=== PATIENT | female | born 1990 | race Caucasian/White ===

== ENCOUNTER → 2019-06-28 | Outpatient (CLI) | payer BC ==
[2019-06-28 17:39] LABS: Basophils # (A) 0.1 k/uL (0-0.2); Basophils % (A) 1 %; Eosinophils # (A) 0.2 k/uL (0-0.7); Eosinophils % (A) 2 %; HCT 43.2 % (34.0-46.0); HGB 13.9 gm/dL (11.4-16.0); Lymphocytes # (A) 3.7 k/uL (1.0-4.8); Lymphocytes % (A) 36 %; MCH 29.6 pg (25.0-35.0); MCHC 32.3 g/dL (31.0-37.0); MCV 91.7 fL (80.0-100.0); Mean Platelet Volume 6.5; Monocytes # (A) 0.4 k/uL (0-1.0); Monocytes % (A) 4 %; Neutrophils # (A) 5.7 k/uL (1.3-7.7); Neutrophils % (A) 55 %; Platelet Count 353 k/uL (150-450); RBC 4.71 m/uL (3.80-5.40); RDW 11.9 % (11.5-15.5); WBC 10.3 k/uL (3.8-10.6)
== END | disposition home or self-care (01) ==
LOC: LABPAT 16:45
PROVIDERS: ATTEND Obstetrics & Gynecology
DX: Z01.812 Encounter for preprocedural laboratory examination (principal)
CPT/HCPCS: 36415; 85025

== ENCOUNTER 2019-07-08 07:12 | Day surgery (SDC) | payer BC ==
[2019-07-05 16:01] VITALS: BMI 38.9
[~2019-07-08 07:12] MED LIST: DEXAMETHASONE SOD PHOSPHATE 10 MG/ML 1 ML VIAL IV ONE; HYDROmorphone 0.5 MG/0.5 ML SYRINGE IVP PRN; LIDOCAINE 1% 20 ML VIAL (10MG/ML) FOR IV START INTRADERMA PRN; MIDAZOLAM 2 MG/2 ML VIAL IV PRN; ONDANSETRON 4 MG/2 ML VIAL IVP ONE; Pre Op ABX Message 1 EACH MISC MISCELLANE ONE; SCOPOLAMINE 1.5MG/72HR PATCH TRANSDERM ONE
--- NOTE | 2019-07-08 07:27 | P.HPOB ---
History of Present Illness H&P Date: 07/08/19 Chief Complaint: Family planning 29 year old G0 presents for laparoscopic tubal ligation. Review of Systems All systems: negative Constitutional: Denies chills, Denies fever Eyes: denies blurred vision, denies pain Ears, nose, mouth and throat: Denies headache, Denies sore throat Cardiovascular: Denies chest pain, Denies shortness of breath Respiratory: Denies cough Gastrointestinal: Denies abdominal pain, Denies diarrhea, Denies nausea, Denies vomiting Genitourinary: Denies dysuria, Denies hematuria Musculoskeletal: Denies myalgias Integumentary: Denies pruritus, Denies rash Neurological: Denies numbness, Denies weakness Psychiatric: Denies anxiety, Denies depression Endocrine: Denies fatigue, Denies weight change Past Medical History Past Medical History: No Reported History History of Any Multi-Drug Resistant Organisms: None Reported Past Surgical History: Tonsillectomy Additional Past Surgical History / Comment(s): WHARTONS DUCT STONE REMOVAL Past Anesthesia/Blood Transfusion Reactions: No Reported Reaction Past Psychological History: ADD/ADHD, Anxiety Smoking Status: Current every day smoker Past Alcohol Use History: None Reported Past Drug Use History: Marijuana - Past Family History Mother Family Medical History: Hypertension Father Family Medical History: Diabetes Mellitus, Hyperlipidemia, Liver Disease Medications and Allergies Home Medications Medication Instructions Recorded Confirmed Type Dextroamphetamine/Amphetamine 60 mg PO DAILY 07/05/19 07/05/19 History [Adderall] Etonogestrel/Ethinyl Estradiol 1 each VG DIRECTED 07/05/19 07/05/19 History [Nuvaring Vaginal Ring] Allergies Allergy/AdvReac Type Severity Reaction Status Date / Time No Known Allergies Allergy Verified 07/05/19 15:54 Exam Osteopathic Statement: *. No significant issues noted on an osteopathic structural exam other than those noted in the History and Physical/Consult. HEart: RRR Lungs: CTAB Abdomen: soft, nontender Extremeties: heron's Assessment and Plan (1) Family planning Current Visit: Yes Status: Acute Code(s): Z30.09 - ENCOUNTER FOR OTH GENERAL CNSL AND ADVICE ON CONTRACEPTION SNOMED Code(s): 788868992 Plan: 1. laparoscopic tubal ligation
[2019-07-08] MEDS ORDERED: LACTATED RINGERS 1,000 ML IV ONE (07:38)
[2019-07-08] MEDS ORDERED: MIDAZOLAM 2 MG/2 ML VIAL ONE (07:56)
[2019-07-08] MEDS ORDERED: KETOROLAC 30 MG/ML 1 ML VIAL ONE (07:56)
[2019-07-08] MEDS ORDERED: LIDOCAINE 1% INJ 10MG/ML (20 ML MDV) ONE (07:56)
[2019-07-08] MEDS ORDERED: HYDROmorphone (PF) 1 MG/ML ONE (07:56)
[2019-07-08] MEDS ORDERED: NEOSTIGMINE 1 MG/ML 10 ML VIAL ONE (07:56)
[2019-07-08] MEDS ORDERED: fentaNYL (PF) 50 MCG/ML 2 ML AMP ONE (07:56)
[2019-07-08] MEDS ORDERED: ROCURONIUM BROMIDE 10 MG/ML 10 ML VIAL IV ONE (07:56)
[2019-07-08] MEDS ORDERED: PROPOFOL 10 MG/ML 20 ML VIAL IV ONE (07:56)
[2019-07-08] MEDS ORDERED: GLYCOPYRROLATE 0.2 MG/ML 2 ML VIAL ONE (07:56)
[2019-07-08] MEDS ORDERED: BUPIVACAINE (PF) 0.25% 30 ML VIAL SQ ONE (08:41)
[2019-07-08 09:03] VITALS: RESP 16; TEMP 97.3
[2019-07-08] MEDS: LACTATED RINGERS 1,000 ML IV SCH ×2 (09:16→09:30)
[2019-07-08 10:23] VITALS: BP 96/62; PULSE 73
--- NOTE | 2019-07-08 12:22 | P.OP ---
Date of Procedure: 07/08/19 Preoperative Diagnosis: 1. Family planning Postoperative Diagnosis: 1. Family planning Procedure(s) Performed: laparoscopic tubal ligation Anesthesia: HAYDEN Surgeon: Sonia Post Estimated Blood Loss (ml): 5 IV fluids (ml): 700 Urine output (ml): 15 Pathology: none sent Condition: stable Disposition: PACU Operative Findings: normal uterus, tubes and ovaries Description of Procedure: Patient was taken to the operating room where general anesthesia was obtained without difficulty. She was prepped and draped in normal sterile fashion in the dorsal lithotomy position, legs placed in the Scottie stirrups. Bladder drained of all urine. Tecumseh speculum placed in the vagina and the anterior lip the cervix was grasped with single-tooth tenaculum. The uterus is sounded to 8 cm and the kroner manipulator was placed. Attention was then turned to the abdomen and gloves were changed. A 10 mm infraumbilical incision was made the scalpel and 10 mm optical trocar was placed under direct visualization. A 5 mm suprapubic Incision was made and a 5 mm optical trocar was placed under direct visualization. Survey of the pelvis revealed normal uterus tubes and ovaries. The left fallopian tube was grasped with a Kleppinger and fulgurated 2-3 cm on this side in the ampullar portion. The right fallopian tube was grasped with a Kleppinger and fulgurated 2-3 cm in the ampullar portion. All instruments were then removed from the abdomen and vagina. The 10 mm infraumbilical incision was closed with 0 Vicryl and the fascial layer and then 4-0 Vicryl in a subcuticular fashion. The 5 mm incision was closed with 4-0 Vicryl in a subcuticular fashion. Patient tolerated procedure well, sponge and instrument counts correct 2 and she was taken to recovery room in stable condition.
== END 2019-07-08 10:41 | disposition home or self-care (01) ==
LOC: OR 07:12 → MERGE 08:00 → OR 10:41
PROVIDERS: ATTEND Obstetrics & Gynecology
DX: Z30.2 Encounter for sterilization (principal); F90.9 Attention-deficit hyperactivity disorder, unspecified type; F41.9 Anxiety disorder, unspecified; F17.200 Nicotine dependence, unspecified, uncomplicated; Z82.49 Family history of ischemic heart disease and other diseases of the circulatory system; Z83.3 Family history of diabetes mellitus; Z83.79 Family history of other diseases of the digestive system; Z79.3 Long term (current) use of hormonal contraceptives; Z79.899 Other long term (current) drug therapy
CPT/HCPCS: 81025; 58670; J2250; J1100; J2710; J2405; J2001; J3010; J1885; J1170; J2704

== ENCOUNTER → 2021-03-29 | Outpatient (CLI) | payer BC ==
--- NOTE | 2021-03-29 10:48 | XR ---
EXAMINATION TYPE: XR finger RT DATE OF EXAM: 03/29/2021 COMPARISON: NONE HISTORY: Pain TECHNIQUE: Three views are submitted. FINDINGS: The osseous structures are intact. The joint spaces are preserved and there is no acute fracture or dislocation. IMPRESSION: 1. No definite acute fracture or dislocation if symptoms persist, follow-up study in 7 to 10 days wo uld be suggested
--- NOTE | 2021-03-29 10:49 | XR ---
EXAMINATION TYPE: XR wrist complete RT DATE OF EXAM: 03/29/2021 COMPARISON: NONE HISTORY: pain TECHNIQUE: Four views submitted. FINDINGS: The osseous structures are intact. The joint spaces are preserved and there is no acute fracture or dislocation. IMPRESSION: 1. No definite acute fracture or dislocation if symptoms persist, follow-up study in 7 to 10 days wo uld be suggested
== END | disposition home or self-care (01) ==
LOC: RADXRMAIN 10:13
PROVIDERS: ATTEND Family Medicine
DX: M79.644 Pain in right finger(s) (principal); M25.531 Pain in right wrist

== ENCOUNTER 2021-04-19 15:01 | Emergency (ER) | payer BC ==
[2021-04-19 15:24] VITALS: RESP 18; TEMP 98.6
[2021-04-19] MEDS ORDERED: Acetaminophen-Codeine 300-30mg TAB PO STA (16:04)
--- NOTE | 2021-04-19 16:06 | ED ---
Lower Extremity Injury HPI - General Chief Complaint: Extremity Injury, Lower Stated Complaint: Injury-Right Ankle Time Seen by Provider: 04/19/21 16:00 Source: patient, RN notes reviewed Mode of arrival: wheelchair Limitations: no limitations - History of Present Illness Initial Comments: 31-year-old well-appearing white female presents to the emergency room with right foot pain and swelling after slipping on one step and falling to the right. She denies any ankle pain but states that the foot is swollen and bruised. She was having difficulty bearing weight. She did take naproxen before coming to the emergency room around 1:30 with minimal relief. She has had ice on it since the injury as well. She denies any other injuries. She has had many broken bones in the past and is a patient of Dr. Gaming. She states that her fractures have occurred because she is clumsy and not related to any pathology.. Complaint: ankle injury, foot injury (Right), fall (Slipped off one step) -: hour(s) (Right2) Injury: Ankle: Right, Foot: Right Type of Injury: eversion Place: home Severity scale (1-10): 8 Worsens With: weight bearing, palpation Other Symptoms: loss of consciousness Associated Symptoms: swelling Treatments Prior to Arrival: cold therapy (Bruising) - Related Data Home Medications Medication Instructions Recorded Confirmed Dextroamphetamine/Amphetamine 60 mg PO DAILY 07/05/19 07/05/19 [Adderall] Etonogestrel/Ethinyl Estradiol 1 each VG DIRECTED 07/05/19 07/05/19 [Nuvaring Vaginal Ring] Previous Rx's Medication Instructions Recorded Acetaminophen-Codeine 300-30mg 2 tab PO Q6H PRN #20 tablet 07/08/19 [Tylenol #3] Ibuprofen [Motrin] 600 mg PO Q6HR PRN #30 tab 07/08/19 Allergies Allergy/AdvReac Type Severity Reaction Status Date / Time No Known Allergies Allergy Verified 07/05/19 15:54 Review of Systems ROS Statement: Those systems with pertinent positive or pertinent negative responses have been documented in the HPI. ROS Other: All systems not noted in ROS Statement are negative. Past Medical History Past Medical History: No Reported History History of Any Multi-Drug Resistant Organisms: None Reported Past Surgical History: Adenoidectomy, Tonsillectomy, Tubal Ligation Additional Past Surgical History / Comment(s): Whartons Duct Caculus sx Past Psychological History: ADD/ADHD, Anxiety Smoking Status: Current every day smoker Past Alcohol Use History: None Reported Past Drug Use History: None Reported General Exam Limitations: no limitations General appearance: alert, in no apparent distress Head exam: Present: atraumatic, normocephalic, normal inspection Eye exam: Present: PERRL ENT exam: Present: normal exam, normal oropharynx, mucous membranes moist Neck exam: Present: normal inspection, full ROM. Absent: tenderness, meningismus, lymphadenopathy Respiratory exam: Present: normal lung sounds bilaterally. Absent: respiratory distress, wheezes, rales, rhonchi, stridor, accessory muscle use Cardiovascular Exam: Present: tachycardia Extremities exam: Present: normal inspection, full ROM, normal capillary refill. Absent: tenderness, pedal edema, joint swelling, calf tenderness Right Foot/Toe exam: Present: tenderness, swelling, ecchymosis (Over the fourth and fifth metatarsals). Absent: full ROM, laceration, deformity, crepitus, dislocation, erythema, calcaneal tenderness Neurovascular tendon exam: Absent: no vascular compromise, abnormal cap refill, extremity cold to touch, pallor, foot drop Back exam: Present: full ROM. Absent: tenderness Neurological exam: Present: alert, oriented X3, CN II-XII intact Psychiatric exam: Present: normal affect, normal mood Skin exam: Present: warm, dry, intact, normal color. Absent: rash, cyanosis, diaphoretic, erythema, petechiae, pallor, mottled Course Vital Signs 04/19/21 04/19/21 15:18 18:10 Temperature 98.6 F Pulse Rate 106 H 65 Respiratory 18 18 Rate Blood Pressure 107/61 110/69 O2 Sat by Pulse 99 96 Oximetry Procedures - Orthopedic Splinting/Casting Injury #1 Side: right Lower Extremity Injury Location: short leg, foot Lower Extremity Immobilizer: posterior splint, Reji wrap, synthetic pre-padded splint Other Orthopedic Equipment: crutches (own) Medical Decision Making - Medical Decision Making X-ray of the right foot shows a chip fracture of the anterior navicular bone measuring 5 mm x 3 mm. Patient was placed in a posterior short leg splint with a referral to orthopedics. She is neurovascularly intact prior to and post splint. She was directed to return to the emergency room with worsening pain, numbness or tingling. Patient states she has crutches in the car. Directed to take Motrin, rest ice elevate at home follow-up with orthopedics. Case discussed with Dr. Vigil Disposition Clinical Impression: Navicular fracture, foot Disposition: HOME SELF-CARE Condition: Good Instructions (If sedation given, give patient instructions): Foot Fracture in Adults (ED) Additional Instructions: Rest, ice, elevate while at home. Wear the splint until seen by orthopedics. Nonweightbearing please use her crutches. Return if any new or worsening symptoms or increased pain. You can take your naproxen as directed. Is patient prescribed a controlled substance at d/c from ED?: No Referrals: Musa Torrez DO [Primary Care Provider] - 1-2 days Quinton Maldonado DO [Doctor of Osteopathic Medicine] - 1-2 days Time of Disposition: 17:46
--- NOTE | 2021-04-19 16:49 | XR ---
EXAMINATION TYPE: XR foot complete RT DATE OF EXAM: 04/19/2021 COMPARISON: None HISTORY: Pain TECHNIQUE: 3 views FINDINGS: Metatarsals are intact. The toes appear intact. There is a 5 mm bony density the anterior a spect of the navicular that is probably an avulsion chip fracture. The remainder of the tarsal bones appear intact. IMPRESSION: Chip fracture of the anterior navicular bone.
--- NOTE | 2021-04-19 16:50 | XR ---
EXAMINATION TYPE: XR ankle complete RT DATE OF EXAM: 04/19/2021 COMPARISON: NONE HISTORY: Pain TECHNIQUE: 3 views FINDINGS: Ankle mortise is anatomic. Joint spaces are normal. There is 5 x 3 mm bony density anterior to the navicular that is probably a chip fracture of the navicular. The remainder of exam is unremar kable. IMPRESSION: No ankle fracture. Chip fracture of the anterior navicular.
[2021-04-19 18:17] VITALS: BP 110/69; PULSE 65
== END 2021-04-19 18:10 | disposition home or self-care (01) ==
LOC: EC 15:01
DX: S92.251A Displaced fracture of navicular [scaphoid] of right foot, initial encounter for closed fracture (principal); F17.200 Nicotine dependence, unspecified, uncomplicated; Z79.1 Long term (current) use of non-steroidal anti-inflammatories (NSAID); W01.0XXA Fall on same level from slipping, tripping and stumbling without subsequent striking against object, initial encounter
CPT/HCPCS: 29515; 99284